=== PATIENT | male | born 1965 | race Caucasian/White ===

== ENCOUNTER → 2020-03-22 | Outpatient (CLI) | payer OTHER | LOC: LAB 17:27 | DX: R60.9 Edema, unspecified (principal); L53.9 Erythematous condition, unspecified ==

== ENCOUNTER → 2024-05-11 | Day surgery (SDC) | payer OTHER ==
[~2024-05-11] MED LIST: Lidocaine PF 2% (20 MG/ML) 2 ML VIAL ONE
== END | disposition home or self-care (01) ==
LOC: MSO 10:24
DX: Z12.11 Encounter for screening for malignant neoplasm of colon (principal)
CPT/HCPCS: 00812; J2704; J7120